=== PATIENT | female | born 1995 | race Caucasian/White ===

== ENCOUNTER 2017-10-21 10:02 | Emergency (ER) | payer OTHER ==
[~2017-10-21] VITALS: Ht 152.4 cm; Wt 66.1 kg
[~2017-10-21 10:02] MED LIST: IBUP-1459 PO
[2017-10-21 10:13] VITALS: TEMP 36.5; Ht 152.4 cm; Wt 66.1 kg
[2017-10-21 11:04] VITALS: O2SAT 99
--- NOTE | 2017-10-21 11:05 | EMERGENCY ROOM VISIT NOTE ---
History Report prepared by Sugey: Jordan Mancini Under the Supervision of: Dr. Tre Parisi D.O. First contact with patient: 10:48 Chief Complaint: CHEST PAIN Stated Complaint: CHEST PAIN, SOB Nursing Triage Summary: pt reports chest pain started last . radiates to left shoulder and down arm. cold sx started thursday History of Present Illness The patient is a 22 year old female who presents to the Emergency Room with complaints of intermittent but worsening left sided chest pain that she has been experiencing since last , 6 days ago. The patient states that her symptoms have been occurring more frequently and more severely as of recently, with the worst episodes being last night. She describes her chest pain as a "tightness" with associated pain and "tingling" in her left shoulder. She also notes significant shortness of breath last night with "hot flashes." Her episodes last night lasted for a couple minutes at a time. She was also lightheaded and dizzy. The patient's father had a myocardial infarction at the age of 26. Source of History: patient Onset: 6 days [employer] Position: chest (left) Quality: other ("tightness") Timing: intermittent, worsening Associated Symptoms: + fevers (Hot flashes), + SOB Review of Systems See HPI for pertinent positives & negatives. A total of 10 systems reviewed and were otherwise negative. Past Medical & Surgical Medical Problems: (1) Facial cellulitis (2) No Known Active Medical Problems Surgical Problems: (1) History of dilatation and curettage Family History FH: myocardial infarction FATHER, Onset:26 Heart disease FATHER Social History Smoking Status: Never Smoker Occupation Status: employed Current/Historical Medications Scheduled Albuterol Hfa (Ventolin Hfa), 2-4 PUFFS INH Q6H Omeprazole (Prilosec), 1 CAP PO DAILY Allergies Coded Allergies: No Known Allergies (Unverified , 10/21/17) Physical Exam Vital Signs Date Time Temp Pulse Resp B/P (MAP) Pulse Ox O2 Delivery O2 Flow Rate FiO2 10/21/17 13:40 74 16 106/65 99 10/21/17 13:19 86 10/21/17 12:55 69 18 101/62 100 Room Air 10/21/17 11:06 82 10/21/17 11:04 82 18 107/71 99 Room Air 1/24/18 11:04 99 Room Air 10/21/17 10:13 36.5 82 18 132/85 99 Room Air Physical Exam GENERAL: Patient is awake, alert, and in no acute distress. Patient is resting comfortably and showing no signs of anxiety EYES: The conjunctivae are clear. The pupils are round and reactive. EARS, NOSE, MOUTH AND THROAT: The nose is without any evidence of any deformity. Mucous membranes are moist tongue is midline NECK: The neck is nontender and supple. RESPIRATORY: Normal respiratory effort is noted there is no evidence of wheezing rhonchi or rales CARDIOVASCULAR: Regular rate and rhythm noted there no murmurs rubs or gallops normal S1 normal S2 GASTROINTESTINAL: The abdomen is soft and nondistended. Bowel sounds are present in all quadrants. There was mild upper abdominal TTP. MUSCULOSKELETAL/EXTREMITIES: There is no evidence of gross deformity full range of motion is noted in the hips and shoulders SKIN: There is no obvious evidence of any rash. There are no petechiae, pallor or cyanosis noted. NEUROLOGIC: Patient is awake alert and oriented x3 Medical Decision & Procedures ER Provider Diagnostic Interpretation: Radiology results as stated below per my review and radiologist interpretation: CHEST ONE VIEW PORTABLE HISTORY: 22 years-old Female EVALUATE RESPIRATORY DISTRESS.DYSPNEA acute respiratory distress with shortness of breath COMPARISON: None available TECHNIQUE: Portable AP view of the chest FINDINGS: Cardiomediastinal and hilar silhouettes are within normal limits. No pneumothorax, pleural effusion, focal airspace consolidation or overt pulmonary edema. The bones of the chest appear grossly intact. Imaged upper abdomen is unremarkable. IMPRESSION: No acute process. The above report was generated using voice recognition software. It may contain grammatical, syntax or spelling errors. Electronically signed by: Sanjiv Hansen M.D. 10/21/2017 12:06 PM Dictated Date/Time: 10/21/2017 12:05 PM Laboratory Results 10/21/17 11:15 Red Blood Count 4.36, Mean Corpuscular Volume 86.9, Mean Corpuscular Hemoglobin 30.3, Mean Corpuscular Hemoglobin Concent 34.8, Mean Platelet Volume 9.6, Neutrophils (%) (Auto) 69.5, Lymphocytes (%) (Auto) 18.7, Monocytes (%) (Auto) 8.7, Eosinophils (%) (Auto) 2.4, Basophils (%) (Auto) 0.5, Neutrophils # (Auto) 5.58, Lymphocytes # (Auto) 1.50, Monocytes # (Auto) 0.70, Eosinophils # (Auto) 0.19, Basophils # (Auto) 0.04 10/21/17 11:15 Test 10/21/17 11:10 10/21/17 11:15 10/21/17 11:16 Urine Color YELLOW Urine Appearance CLEAR (CLEAR) Urine pH 8.0 (4.5-7.5) Urine Specific [place] 1.013 (1.000-1.030) Urine Protein NEG (NEG) Urine Glucose (UA) NEG (NEG) Urine Ketones NEG (NEG) Urine Occult Blood NEG (NEG) Urine Nitrite NEG (NEG) Urine Bilirubin NEG (NEG) Urine Urobilinogen NEG (NEG) Urine Leukocyte Esterase NEG (NEG) White Blood Count 8.03 K/uL (4.8-10.8) Red Blood Count 4.36 M/uL (4.2-5.4) Hemoglobin 13.2 g/dL (12.0-16.0) Hematocrit 37.9 % (37-47) Mean Corpuscular Volume 86.9 fL (80-100) Mean Corpuscular Hemoglobin 30.3 pg (25-34) Mean Corpuscular Hemoglobin Concent 34.8 g/dl (32-36) Platelet Count 174 K/uL (130-400) Mean Platelet Volume 9.6 fL (7.4-10.4) Neutrophils (%) (Auto) 69.5 % Lymphocytes (%) (Auto) 18.7 % Monocytes (%) (Auto) 8.7 % Eosinophils (%) (Auto) 2.4 % Basophils (%) (Auto) 0.5 % Neutrophils # (Auto) 5.58 K/uL (1.4-6.5) Lymphocytes # (Auto) 1.50 K/uL (1.2-3.4) Monocytes # (Auto) 0.70 K/uL (0.11-0.59) Eosinophils # (Auto) 0.19 K/uL (0-0.5) Basophils # (Auto) 0.04 K/uL (0-0.2) RDW Standard Deviation 39.9 fL (36.4-46.3) RDW Coefficient of Variation 12.4 % (11.5-14.5) Immature Granulocyte % (Auto) 0.2 % Immature Granulocyte # (Auto) 0.02 K/uL (0.00-0.02) Prothrombin Time 10.7 SECONDS (9.0-12.0) Prothromb Time International Ratio 1.0 (0.9-1.1) Activated Partial Thromboplast Time 29.4 SECONDS (21.0-31.0) Partial Thromboplastin Ratio 1.1 Anion Gap 7.0 mmol/L (3-11) Est Creatinine Clear Calc Drug Dose 128.0 ml/min Estimated GFR () > 150.0 Estimated GFR (Non- 131.0 BUN/Creatinine Ratio 9.9 (10-20) Calcium Level 9.2 mg/dl (8.5-10.1) Total Bilirubin 0.4 mg/dl (0.2-1) Aspartate Amino Transf (AST/SGOT) 12 U/L (15-37) Alanine Aminotransferase (ALT/SGPT) 14 U/L (12-78) Alkaline Phosphatase 53 U/L (45-117) Total Creatine Kinase 55 U/L (26-192) Creatine Kinase MB 0.5 ng/ml (0.5-3.6) Creatine Kinase MB Ratio 0.9 (0-3.0) Troponin I < 0.015 ng/ml (0-0.045) Total Protein 7.3 gm/dl (6.4-8.2) Albumin 3.8 gm/dl (3.4-5.0) Globulin 3.5 gm/dl (2.5-4.0) Albumin/Globulin Ratio 1.1 (0.9-2) Human Chorionic Gonadotropin, Qual NEG (NEG) Bedside D-Dimer 97 ng/mlFEU (0-450) Laboratory results per my review. ECG Indication: chest pain Rate (beats per minute): 84 Rhythm: normal sinus Findings: Q waves (Inferior), no acute ischemic change, no ectopy Comparison ECG Date: 09/17/2015 Change: no significant change Change: Patient's EKG was interpreted by me. ED Course 1056: The patient was evaluated in room C11. A complete history and physical examination were performed. 1218: I checked on the patient at this time. She is doing well. 1317: Upon reevaluation, the patient is resting comfortably. I discussed the results and treatment plan with her. She verbalized agreement of the treatment plan. The patient was discharged home. Medical Decision Differential diagnosis: Etiologies such as cardiac ischemia, aortic dissection, pulmonary embolism, pneumonia, pneumothorax, musculoskeletal, infections, pericarditis, myocarditis , esophageal rupture, gastrointestinal, as well as others were entertained. Nursing notes reviewed. The patient is a 22-year-old female who presented to emergency department for an evaluation of chest discomfort. The patient describes intermittent left- sided chest pain. The patient has a strong family history of early coronary disease. For this reason she presented to the emergency department for an evaluation. The patient's EKG did not show any acute changes from previous. Her d-dimer is negative. Her cardiac biomarkers were negative despite having ongoing pain since last evening. I discussed the patient's laboratory radiographic studies with her. I discussed the limitations of the emergency department workup for chest pain with her. She was encouraged to follow-up with her primary care physician for further testing including echocardiogram. She was also encouraged to rest and avoid any strenuous activity. I also encouraged her to return to the emergent department immediately symptoms change worsen or the need arises. Impression Primary Impression: Left sided chest pain Scribe Attestation The scribe's documentation has been prepared under my direction and personally reviewed by me in its entirety. I confirm that the note above accurately reflects all work, treatment, procedures, and medical decision making performed by me. Departure Information Dispostion Home / Self-Care Prescriptions Omeprazole (PRILOSEC) 20 Mg Cap 1 CAP PO DAILY for 30 Days, #30 CAP 5 Refills Prov: Tre Parisi, DO 10/21/17 Referrals No Doctor, Assigned (PCP) Patient Instructions My [facility] Additional Instructions Call your family to schedule a follow-up appointment. Res and avoid any strenuous activity. Call your family doctor to discuss the possibility that he may require further studies such as an electrocardiograms. Return to the emergency department immediately if symptoms change worsen or the need arises.
[2017-10-21 11:22] LABS: BASO % 0.5 %; BASO ABS # 0.04 K/uL (0-0.2); EOS % 2.4 %; EOS ABS # 0.19 K/uL (0-0.5); HEMATOCRIT 37.9 % (37-47); HEMOGLOBIN 13.2 g/dL (12.0-16.0); IG# 0.02 K/uL (0.00-0.02); LYMPH % 18.7 %; MEAN CELL VOLUME 86.9 fL (80-100); MEAN CORPUSCULAR HEMOGLOBIN 30.3 pg (25-34); MEAN CORPUSCULAR HGB CONC 34.8 g/dl (32-36); MEAN PLATELET VOLUME 9.6 fL (7.4-10.4); MONO % 8.7 %; NEUT % 69.5 %; NEUT ABS # 5.58 K/uL (1.4-6.5); PLATELET COUNT 174 K/uL (130-400); RED CELL DISTRIBUTION WIDTH CV 12.4 % (11.5-14.5); RED CELL DISTRIBUTION WIDTH SD 39.9 fL (36.4-46.3); WHITE BLOOD COUNT 8.03 K/uL (4.8-10.8)
[2017-10-21] MEDS ORDERED: VNTHFA/IN INH (11:25)
[2017-10-21 11:35] LABS: PTT PATIENT 29.4 SECONDS (21.0-31.0)
[2017-10-21 11:41] LABS: ALBUMIN 3.8 gm/dl (3.4-5.0); ALT/SGPT 14 U/L (12-78); AST/SGOT 12 U/L (15-37); BLOOD UREA NITROGEN 6 mg/dl (7-18); CALCIUM 9.2 mg/dl (8.5-10.1); CARBON DIOXIDE 25 mmol/L (21-32); CREATININE 0.59 mg/dl (0.60-1.20); GLUCOSE 85 mg/dl (70-99); POTASSIUM 3.4 mmol/L (3.5-5.1); SODIUM 137 mmol/L (136-145)
[2017-10-21 11:45] LABS: ALKALINE PHOSPHATASE 53 U/L (45-117); CKMB 0.5 ng/ml (0.5-3.6); TOTAL PROTEIN 7.3 gm/dl (6.4-8.2)
--- NOTE | 2017-10-21 12:08 | DIAGNOSTIC IMAGING REPORT ---
CHEST ONE VIEW PORTABLE HISTORY: 22 years-old Female EVALUATE RESPIRATORY DISTRESS.DYSPNEA acute respiratory distress with shortness of breath COMPARISON: None available TECHNIQUE: Portable AP view of the chest FINDINGS: Cardiomediastinal and hilar silhouettes are within normal limits. No pneumothorax, pleural effusion, focal airspace consolidation or overt pulmonary edema. The bones of the chest appear grossly intact. Imaged upper abdomen is unremarkable. IMPRESSION: No acute process. The above report was generated using voice recognition software. It may contain grammatical, syntax or spelling errors. Electronically signed by: Sanjiv Hansen M.D. 10/21/2017 12:06 PM Dictated Date/Time: 10/21/2017 12:05 PM
[2017-10-21] MEDS ORDERED: OMEP20CA9 PO (13:19)
[2017-10-21 13:40] VITALS: BP 106/65; PULSE 74; O2SAT 99
== END 2017-10-21 13:41 | disposition home or self-care (01) ==
LOC: C.EDB 10:06 → C.EDC 13:41
DX: Z82.49 Family history of ischemic heart disease and other diseases of the circulatory system (principal)

== ENCOUNTER 2020-04-06 09:52 | Inpatient (IN) ==
--- NOTE | 2020-04-06 14:41 | Obstetrical Progress Note ---
Date of Service April 06, 2020 Assessment & Plan Admission and Anticipated Discharge Date Admission Date: April 06, 2020 Subjective Met pt and spouse Reviewed PNC induction for post dates Bedside sono: Vt FHR: CAT1 Ctx. minimal VE; ft/post/25% Bess bulb inserted and insufflated with 30 cc Pt tolerated procedure well Results & Data ([facility]) Vital Signs (Past 12 Hours) Vital Signs Temp Pulse Resp BP 04/06/20 13:26 36.7 C 20 04/06/20 13:15 89 131/61
[2020-04-06] MEDS ORDERED: OXYTOCIN 30 UNITS/500 ML BAG IV PRN (15:21)
[2020-04-06] MEDS ORDERED: PENICILLIN G POTASSIUM 6 MU in DEXTROSE 5% 250 ML IV STA (15:21)
[2020-04-06] MEDS: LACTATED RINGER'S 1,000 ML IV PRN ×2 (15:39→22:16)
[2020-04-06 16:02] LABS: Hematocrit (blood only) 35.3 % (37-47); Hemoglobin 11.4 g/dL (12.0-16.0); Mean Corpuscular Volume 83.5 fL (80-100); Mean Platelet Volume 10.4 fL (7.4-10.4); Platelet Count 240 K/uL (130-400); RDW Standard Deviation 45.6 fL (36.4-46.3); Red Blood Count 4.23 M/uL (4.2-5.4); White Blood Count 10.73 K/uL (4.8-10.8)
[2020-04-06 16:05] LABS: Mean Corpuscular Hgb Conc 32.3 g/dL (32-36)
--- NOTE | 2020-04-06 21:15 | Obstetrical Progress Note ---
Date of Service April 06, 2020 Assessment & Plan Admission and Anticipated Discharge Date Admission Date: April 06, 2020 Subjective Pt doing well FHR; CAT1 Ctx 1-3mins pit; 10MU VE; 3/50/-3 AROM with amnio.hook- clear fluid Results & Data ([facility]) Vital Signs (Past 12 Hours) Vital Signs Temp Pulse Resp BP 04/06/20 20:01 75 18 122/71 04/06/20 19:12 36.4 C L 70 18 124/78 04/06/20 18:25 61 111/67 04/06/20 17:39 71 104/57 L 04/06/20 16:34 70 114/74 04/06/20 15:43 88 109/71 04/06/20 14:59 37.0 C 77 20 116/67 04/06/20 13:26 36.7 C 20 04/06/20 13:15 89 131/61
[2020-04-06] MEDS ORDERED: BUPIVACAINE 0.25% 30 ML VIAL ONE (22:04)
[2020-04-06] MEDS ORDERED: ePHEDrine sulfate 50 MG/ML AMP ONE (22:04)
[2020-04-06] MEDS ORDERED: fentaNYL 2MCG/ML ROPIV 1.25MG/ML 100 ML BAG EPI ONE (22:05)
[2020-04-06] MEDS ORDERED: fentaNYL citrate 100 MCG/2 ML VIAL ONE (22:05)
--- NOTE | 2020-04-06 22:22 | Anesthesiology Consultation ---
Date of Service April 06, 2020 Assessment & Plan (1) Encounter for pre-operative examination: Chart Review Chart Review: Patient NOT seen in Pre Admission Testing and Acceptable Risk for Labor Epidural Consults Requested none ASA ASA3 Proposed Anesthesia Anesthesia Type: Labor Epidural Risk / Benefits Reviewed With: PT / POA / Parent / Guardian, Accepts Plan and Informed Consent Obtained History Height/Weight Height: 5 ft 1 in Weight: 92.533 kg Allergies Allergy/AdvReac Type Severity Reaction Status Date / Time No Known Allergies Allergy Verified 04/06/20 13:42 Medications Home Medications Medication Instructions Recorded Confirmed Last Taken vit no.[id number] 1 tab PO DAILY 03/05/20 04/06/20 04/06/20 05:00 [ Vitamin] albuterol sulfate 2 puff INHALATION QID PRN 03/20/20 04/06/20 Unknown Active Medications Generic Name Dose Route Start Last Admin Trade Name Freq PRN Reason Stop Dose Admin Lactated Ringer's 1,000 mls @ 125 mls/hr 04/06/20 15:21 04/06/20 22:16 Lr IV 04/08/20 15:20 999 mls/hr .Q8H PRN Administration L&D Protocol Protocol Oxytocin 30 units in 500 mls @ 10 mls/hr 04/06/20 15:21 04/06/20 22:00 Pitocin IV 04/08/20 15:20 0.6 units/hr .Q24H PRN 10 mls/hr Labor Induction/Augmentation Titration Protocol 0.6 UNITS/HR NPO Date Last Intake of Fluids: 04/06/20 Time Last Intake of Fluids: 22:19 Date Last Intake of Solids: 04/06/20 Time Last Intake of Solids: 11:00 Past Medical History Medical History Asthma inhaler as needed Medullary sponge kidney Diagnosed a few years ago; saw nephrology 12/2018; monitoring yearly PCOS (polycystic ovarian syndrome) SAB (spontaneous ) w/ D&C 2015 Exercise / Class Metabolic Activity II 4-5 Yardwork/Stairs/Walk up hill Past Family History Family History Father Heart disease Grandfather (Paternal) Diabetes Grandfather (Maternal) Cancer Past Surgical History Surgical History History of dilatation and curettage Past Anesthesia History No Hx of Anesthesia Complications History of PONV No Hx of PONV Social History Smoking Status: Never smoker Hx Alcohol Use: No Hx Substance Use: No substance use type: does not use Review of Systems Patient denies history of abnormal bleeding or bleeding disorder. Patient denies active use of anticoagulants other than low dose aspirin. Patient denies numbness, tingling or weakness in lower extremities. Negative for chest pain or shortness of breath. Physical Exam Vital Signs Last Vital Signs Temp 36.4 C L 04/06/20 21:14 Pulse 77 04/06/20 21:14 Resp 18 04/06/20 21:14 BP 135/83 04/06/20 21:14 Constitutional not obese ENMT Mouth: no TMJ abnormality and oral opening not small Thyromental Distance: < 3.5 Finger Breadths Mallampati Class: III Neck normal visual inspection; neck extension not limited Respiratory normal respiratory effort Auscultation: lungs clear to auscultation bilaterally Cardiovascular Rate/Rhythm: regular rate and regular rhythm Heart Sounds: no murmur Neurologic moves all extremities Motor/Sensory: no sensory deficit Psychiatric Orientation: alert and oriented x 3 Testing Laboratory Results 04/06/20 15:34
[2020-04-06] MEDS ORDERED: ePHEDrine sulfate 50 MG/ML AMP IV PRN (22:53)
[2020-04-06] MEDS ORDERED: NALOXONE HCL 1 MG in SODIUM CHLORIDE 0.9% 1000ML 1,000 ML IV PRN (22:53)
[2020-04-06] MEDS ORDERED: DiphenhydrAMINE HCL 50 MG/ML VIAL IV PRN (22:53)
[2020-04-06] MEDS ORDERED: ONDANSETRON INJ 2 MG/ML 2 ML VIAL IV PRN (22:53)
[2020-04-06] MEDS ORDERED: NALOXONE HCL 0.4 MG/1 ML VIAL/CARP IV PRN (22:53)
[2020-04-07] MEDS: LACTATED RINGER'S 1,000 ML IV PRN ×3 (00:14→16:37)
[2020-04-07] MEDS: PENICILLIN G POTASSIUM 3 MU in DEXTROSE 5% 100 ML IV PRN ×5 (01:52→20:00)
[2020-04-07] MEDS: fentaNYL 2MCG/ML ROPIV 1.25MG/ML 100 ML BAG EPI PRN ×3 (07:56→17:27)
[2020-04-07] MEDS ORDERED: PROMETHAZINE HCL 12.5 MG in SODIUM CHLORIDE 0.9% 50 ML IV PRN (09:27)
[2020-04-07] MEDS ORDERED: BUPIVACAINE 0.25% 30 ML VIAL ONE ×2 (11:35→16:52)
[2020-04-07] MEDS ORDERED: fentaNYL citrate 100 MCG/2 ML VIAL ONE ×2 (11:35→16:52)
--- NOTE | 2020-04-07 12:06 | Communication Note ---
Date of Service: April 07, 2020 At 1201pm ,pt. epidural catheter was bolused with 12 ml 0.17% bupivacaine + 100 mcgs fentanyl; negative aspiration w/ incremental injections;vital signs stable. pt c/o pain level 8/10
--- NOTE | 2020-04-07 17:06 | Communication Note ---
Date of Service: April 07, 2020 At 1702, pt epidural was bolused w/ 12 ml 0.17% bupivacaine + 100 mcgs fentanyl;neg. asp. and incremental injection was performed.Vital signs were stable.
[2020-04-07] MEDS: OXYTOCIN 30 UNITS/500 ML BAG IV PRN ×2 (20:35→21:10)
--- NOTE | 2020-04-07 20:48 | Delivery Summary ---
Vaginal Delivery Summary Date of Service April 07, 2020 Vaginal Delivery Summary Delivery Note live male SEBAS with nuchal cord x1 reduced at delivery over intact perineum with Apgars 7/9 weight pending. Cord blood obtained followed by spontaneous delivery of intact placenta. No tears. EBL 200 ml. Final sponge and instrument count are correct. Mom and baby stable.
[2020-04-07] MEDS ORDERED: IBUPROFEN 600 MG TAB PO ONE (21:58)
[2020-04-07] MEDS ORDERED: DIPHTHERIA/TETANUS/PERTUSSIS 0.5 ML SYR/VIAL IM ONE (22:05)
[2020-04-07] MEDS ORDERED: BENZOCAINE 20% AER SPR 82.5 GM CAN EXT PRN (22:05)
[2020-04-07] MEDS ORDERED: ALBUTEROL HFA 8 GM INHALER INH PRN (22:05)
[2020-04-07] MEDS ORDERED: SUPERCREAM 0.870% 15 GM JAR EXT PRN (22:05)
[2020-04-07] MEDS ORDERED: bisacodyL 10 MG SUPP PR PRN (22:05)
[2020-04-07] MEDS ORDERED: HYDROCORTISONE ACETATE 25 MG SUPP PR PRN (22:05)
[2020-04-07] MEDS ORDERED: OXYTOCIN 30 UNITS/500 ML BAG IV PRN (22:05)
--- NOTE | 2020-04-07 23:12 | Anesthesia Procedure Note ---
Date of Service April 07, 2020 Anesthesia Post Epidural Note Vital Signs Vital Signs: Temp Pulse Resp BP Pulse Ox 36.8 C 94 H 18 107/63 98 04/07/20 21:45 04/07/20 23:00 04/07/20 22:55 04/07/20 23:00 04/07/20 20:36 Notes Mental Status: alert / awake / arousable and participated in evaluation Nausea / Vomiting: adequately controlled Pain: adequately controlled Airway Patency, RR, SpO2: stable & adequate BP & HR: stable & adequate Hydration State: stable & adequate Neuraxial Anesthesia: was administered and sensory block is resolving Anesthetic Complications: no major complications apparent and Pt Satisfied with anesthetic care Epidural: Removed without complications and With tip intact Notes: Epidural site clean, dry and intact. No signs of edema, erythema or bruising at insertion site. Pt instructed to request anesthesia if she has residual lower extremity numbness or if she develops lower extremity pain or weakness, back pain or headache.
[2020-04-08] MEDS: IBUPROFEN 600 MG TAB PO PRN ×6 (02:03→23:16)
[2020-04-08] MEDS: ACETAMINOPHEN 325 MG TAB PO PRN ×2 (03:38→19:40)
[2020-04-08 05:47] LABS: Hematocrit (blood only) 28.6 % (37-47); Hemoglobin 9.6 g/dL (12.0-16.0); Mean Corpuscular Hemoglobin 27.1 pg (25-34); Mean Corpuscular Hgb Conc 33.6 g/dL (32-36); Mean Corpuscular Volume 80.8 fL (80-100); Mean Platelet Volume 10.3 fL (7.4-10.4); Platelet Count 229 K/uL (130-400); RDW Coefficient of Variation 14.7 % (11.5-14.5); RDW Standard Deviation 43.5 fL (36.4-46.3); Red Blood Count 3.54 M/uL (4.2-5.4); White Blood Count 22.86 K/uL (4.8-10.8)
[2020-04-08] MEDS ORDERED: PRENATAL VITAMIN 1 TAB PO SCH (08:00)
[2020-04-08] MEDS: PRENATAL VITAMIN 1 TAB PO SCH (08:44)
[2020-04-08] MEDS: DOCUSATE SODIUM 100 MG CAP PO SCH ×2 (08:44→15:58)
--- NOTE | 2020-04-08 10:11 | Obstetrical Progress Note ---
Date of Service April 08, 2020 Assessment & Plan Admission and Anticipated Discharge Date Admission Date: April 06, 2020 Subjective PPD#1 stable doing well tolerating diet passing gas Physical Exam Constitutional: WD/WN, vitals as above comfortable abdomen soft and non- tender fundus firm no edema neg Joseph's tent d/c in AM Results & Data ([facility]) Vital Signs (Past 12 Hours) Vital Signs Temp Pulse Pulse Resp BP BP Pulse Ox 04/08/20 07:30 36.6 C 76 20 108/69 04/08/20 04:00 36.8 C 74 20 110/68 99 04/08/20 00:00 36.7 C 78 20 113/78 98 04/07/20 23:00 94 H 107/63 04/07/20 22:55 18 04/07/20 22:45 106 H 106/59 L 04/07/20 22:30 100 H 104/58 L 04/07/20 22:15 95 H 18 109/60 Laboratory Results Laboratory Results - last 48 hr 04/06/20 04/08/20 15:34 05:21 WBC 10.73 22.86 H RBC 4.23 3.54 L Hgb 11.4 L 9.6 L Hct 35.3 L 28.6 L MCV 83.5 80.8 MCH 27.0 27.1 MCHC 32.3 33.6 RDW Std Deviation 45.6 43.5 RDW Coeff of Nan 15.0 H 14.7 H Plt Count 240 229 MPV 10.4 10.3
[2020-04-08] MEDS ORDERED: bisacodyL 5 MG TABEC PO SCH (20:00)
[2020-04-09] MEDS: DOCUSATE SODIUM 100 MG CAP PO SCH ×2 (04:02→07:52)
[2020-04-09 05:46] LABS: Hematocrit (blood only) 26.3 % (37-47); Hemoglobin 8.6 g/dL (12.0-16.0)
[2020-04-09] MEDS: PRENATAL VITAMIN 1 TAB PO SCH (07:52)
[2020-04-09] MEDS: IBUPROFEN 600 MG TAB PO PRN (07:52)
--- NOTE | 2020-04-09 08:37 | Obstetrical Progress Note ---
Date of Service April 09, 2020 Assessment & Plan (1) Normal course: PPD #1 pt doing well d/c home with instructions Subjective Ambulation: ambulating normally Voiding: no voiding problems Passing Gas:: Yes Diet Tolerance:: regular diet Lochia:: Small Feeding Type:: breast feeding Review of Systems All systems reviewed & are unremarkable except as noted in HPI & below Physical Exam Constitutional WD/WN, vitals as above well developed and well nourished Eyes PERRL, conjunctivae normal, anicteric sclerae Neck trachea midline, no thyromegaly Respiratory normal respiratory effort, lungs clear to auscultation Auscultation: no crackles, no rales and no wheezes Cardiovascular RRR, no murmur, no edema Gastrointestinal (Abdomen) normal bowel sounds, soft, nontender, no hepatosplenomegaly Uterus is below umbilicus Musculoskeletal no cyanosis or clubbing, extremities motor strength 5/5 Skin no rashes, warm and dry Neurologic patellar DTR's 2+ bilat, sensation intact Psychiatric A+Ox3, euthymic affect Genitourinary normal external appearance Results & Data Vital Signs (Past 12 Hours) Vital Signs Temp Pulse Resp BP Pulse Ox 04/08/20 23:05 36.5 C 75 18 102/64 98
== END 2020-04-09 13:10 | disposition home or self-care (01) | DRG 807 ==
LOC: 4S1 13:07 → 4S2 04-07 23:30

== ENCOUNTER 2023-03-31 23:12 | Inpatient (IN) ==
[2023-03-31] MEDS ORDERED: OXYTOCIN 30 UNITS/500 ML BAG IV PRN (23:38)
[2023-03-31] MEDS ORDERED: LIDOCAINE 1% LOCAL 20 ML VIAL INFIL PRN (23:38)
[2023-03-31] MEDS: LACTATED RINGER'S 1,000 ML IV PRN (23:50)
[2023-03-31] MEDS ORDERED: ePHEDrine sulfate 50 MG/ML AMP ONE (23:59)
[2023-03-31] MEDS ORDERED: fentaNYL citrate PF 100 MCG/2 ML VIAL ONE (23:59)
[2023-04-01] MEDS ORDERED: fentaNYL 2MCG/ML ROPIVACAINE 1.25MG/ML 100 ML BAG EPI ONE
[2023-04-01] MEDS ORDERED: BUPIVACAINE 0.25% PF 30 ML VIAL ONE
[2023-04-01] MEDS ORDERED: SODIUM CHLORIDE 0.9% PF INJ 10 ML VIAL ONE
[2023-04-01] MEDS ORDERED: LIDOCAINE 2%/EPINEPHRINE 1:200,000 20 ML PF ONE
[2023-04-01 00:39] LABS: Hematocrit (blood only) 35.1 % (37.0-47.0); Mean Corpuscular Hemoglobin 29.9 pg (25.0-34.0); Mean Corpuscular Hgb Conc 34.2 g/dL (32.0-36.0); Mean Corpuscular Volume 87.3 fL (80.0-100.0); Mean Platelet Volume 9.9 fL (9.4-12.4); Platelet Count 299 K/uL (130-400); RDW Coefficient of Variation 13.9 % (11.5-14.5); RDW Standard Deviation 45.1 fL (36.4-46.3); Red Blood Count 4.02 M/uL (4.20-5.40); White Blood Count 18.21 K/ul (4.8-10.8)
[2023-04-01] MEDS: LACTATED RINGER'S 1,000 ML IV PRN ×2 (00:49→09:03)
[2023-04-01] MEDS ORDERED: BUPIVACAINE 0.25% PF 30 ML VIAL EPI PRN (02:31)
[2023-04-01] MEDS ORDERED: BUPIVACAINE 0.25% PF 30 ML VIAL EPI STA (02:31)
[2023-04-01] MEDS ORDERED: LIDOCAINE 2% MPF LOCAL 5 ML VIAL EPI PRN (02:31)
[2023-04-01] MEDS ORDERED: NALOXONE HCL 1 MG in SODIUM CHLORIDE 0.9% 1000ML 1,000 ML IV PRN (02:31)
[2023-04-01] MEDS ORDERED: LIDOCAINE 2%/EPINEPHRINE 1:200,000 20 ML PF EPI STA (02:31)
[2023-04-01] MEDS ORDERED: SODIUM CHLORIDE 0.9% PF INJ 10 ML VIAL EPI STA (02:31)
[2023-04-01] MEDS ORDERED: diphenhydrAMINE 50 MG/ML VIAL IV PRN (02:31)
[2023-04-01] MEDS ORDERED: NALBUPHINE HCL INJ 10 MG/ML AMP IV PRN (02:31)
[2023-04-01] MEDS ORDERED: ePHEDrine sulfate 50 MG/ML AMP IV PRN (02:31)
[2023-04-01] MEDS ORDERED: ROPIVACAINE 0.5% PF 5 MG/ML 20 ML VIAL EPI PRN (02:31)
[2023-04-01] MEDS ORDERED: ONDANSETRON INJ 2 MG/ML 2 ML VIAL IV PRN (02:31)
[2023-04-01] MEDS ORDERED: SODIUM CHLORIDE 0.9% PF INJ 10 ML VIAL EPI PRN (02:31)
[2023-04-01] MEDS ORDERED: fentaNYL citrate PF 100 MCG/2 ML VIAL EPI PRN (02:31)
[2023-04-01] MEDS ORDERED: fentaNYL 2MCG/ML ROPIVACAINE 1.25MG/ML 100 ML BAG EPI PRN (02:31)
[2023-04-01] MEDS ORDERED: NALOXONE HCL 0.4 MG/1 ML VIAL/CARP IV PRN (02:31)
[2023-04-01] MEDS ORDERED: fentaNYL citrate PF 100 MCG/2 ML VIAL EPI STA (02:31)
--- NOTE | 2023-04-01 02:31 | Anesthesiology Consultation ---
Date of Service April 01, 2023 Assessment & Plan ASA ASA2 Proposed Anesthesia Anesthesia Type: Labor Epidural Risk / Benefits Reviewed With: PT / POA / Parent / Guardian, Accepts Plan and Informed Consent Obtained Additional Comments: late entry 2/2 need for pain control of patient History Height/Weight Height: 5 ft 1 in Weight: 83.461 kg Allergies Allergy/AdvReac Type Severity Reaction Status Date / Time No Known Allergies Allergy Verified 03/31/23 19:19 Medications Home Medications Medication Instructions Recorded Confirmed Last Taken vit no.133-ferrous 1 tab PO DAILY 10/31/22 03/31/23 03/30/23 fumarate 28 mg-folic acid 800 mcg tablet () Active Medications Generic Name Dose Route Start Last Admin Trade Name Freq PRN Reason Stop Dose Admin Lactated Ringer's 1,000 mls @ 125 mls/hr 03/31/23 23:38 04/01/23 00:49 Lr IV 04/02/23 23:37 125 mls/hr .Q8H PRN Administration L&D Protocol Protocol Past Medical History Medical History Anemia Iron infusions x 3 Asthma inhaler as needed Medullary sponge kidney Diagnosed a few years ago; saw nephrology 12/2018; monitoring yearly PCOS (polycystic ovarian syndrome) SAB (spontaneous ) w/ D&C 2015 Exercise / Class Metabolic Activity II 4-5 Yardwork/Stairs/Walk up hill Past Family History Family History Father Heart disease Grandfather (Paternal) Diabetes Grandfather (Maternal) Cancer Past Surgical History Surgical History History of dilatation and curettage Past Anesthesia History No Hx of Anesthesia Complications and No Family Hx of Anesthesia Complications History of PONV No Hx of PONV and No Hx of Motion Sickness Social History Smoking Status: Never smoker Hx Alcohol Use: No Hx Substance Use: No substance use type: does not use Review of Systems denies fever/cough/ colds/ chest pain/ SOB/ SIVA denies SIVA Physical Exam Vital Signs Last Vital Signs Temp 36.5 C 03/31/23 23:25 Pulse 103 H 04/01/23 02:26 Resp 18 03/31/23 23:25 BP 105/51 L 04/01/23 02:26 Pulse Ox 96 04/01/23 02:25 ENMT Mouth: no TMJ abnormality and no dentition abnormality Thyromental Distance: > or= 3.5 Finger Breadths Mallampati Class: II Neck neck extension not limited Respiratory normal respiratory effort; no respiratory distress Auscultation: lungs clear to auscultation bilaterally Cardiovascular Rate/Rhythm: regular rate and regular rhythm Neurologic moves all extremities Psychiatric Orientation: alert and oriented x 3 Testing Laboratory Results 04/01/23 00:13
--- NOTE | 2023-04-01 06:37 | Obstetrical Progress Note ---
Date of Service April 01, 2023 Assessment & Plan (1) : Plan: Pt admitted for labor seen this AM FHR CAT1 Ctx 1-2mins Exam by Nurse. 7cm anticipate VD Admission and Anticipated Discharge Date Admission Date: March 31, 2023 Results & Data Vital Signs (Past 12 Hours) Vital Signs Temp Pulse Resp BP Pulse Ox 03/31/23 23:25 36.5 C 78 18 114/58 L 04/01/23 06:30 86 97 04/01/23 06:25 91 H 99 04/01/23 06:24 80 99/56 L 04/01/23 06:23 89 90 04/01/23 06:20 84 98 04/01/23 06:15 79 98 04/01/23 06:10 79 101/59 L 98 04/01/23 06:05 78 98 04/01/23 06:00 85 98 04/01/23 05:56 86 91/52 L 04/01/23 05:49 18 04/01/23 05:49 18 04/01/23 05:55 91 H 98 04/01/23 05:50 96 H 97 04/01/23 05:45 84 98 04/01/23 05:40 98 04/01/23 05:40 88 04/01/23 05:40 84 116/65 04/01/23 05:38 106 H 92 04/01/23 05:35 80 97 04/01/23 05:30 80 99 04/01/23 05:25 97 H 93/52 L 98 04/01/23 05:20 75 97 04/01/23 05:15 83 98 04/01/23 05:10 77 97 04/01/23 05:09 75 89/51 L 04/01/23 05:05 83 97 04/01/23 05:00 77 98 04/01/23 04:55 84 97 04/01/23 04:54 77 94/52 L 04/01/23 04:50 90 98 04/01/23 04:45 95 H 99 04/01/23 04:44 69 94 04/01/23 04:40 97 04/01/23 04:40 68 04/01/23 04:40 67 104/51 L 04/01/23 04:38 74 94 04/01/23 04:35 71 96 04/01/23 04:30 69 96 04/01/23 04:28 69 94 04/01/23 04:25 97 04/01/23 04:25 69 04/01/23 04:25 65 105/57 L 04/01/23 04:20 70 98 04/01/23 04:19 66 94 04/01/23 04:15 79 98 04/01/23 04:11 68 114/52 L 04/01/23 04:10 68 98 04/01/23 04:05 77 97 04/01/23 04:03 16 04/01/23 04:03 16 04/01/23 04:02 112 H 94 04/01/23 04:00 80 96 04/01/23 03:56 84 94 04/01/23 03:57 88 85/51 L 04/01/23 03:55 83 95 04/01/23 03:50 95 04/01/23 03:50 84 04/01/23 03:50 81 94 04/01/23 03:45 84 95 04/01/23 03:44 80 94 04/01/23 03:40 87 96 04/01/23 03:39 80 83/50 L 04/01/23 03:38 82 94 04/01/23 03:35 88 95 04/01/23 03:33 76 94 04/01/23 03:30 88 95 04/01/23 03:25 96 04/01/23 03:25 94 H 04/01/23 03:24 88 94 04/01/23 03:25 94 H 87/51 L 04/01/23 03:20 92 H 95 04/01/23 03:19 92 H 94 04/01/23 03:15 80 95 04/01/23 03:11 86 89/51 L 04/01/23 03:10 83 93 04/01/23 03:05 94 H 96 04/01/23 03:00 95 H 98 04/01/23 02:56 81 92/52 L 04/01/23 02:55 95 04/01/23 02:55 95 H 04/01/23 02:55 86 94 04/01/23 02:50 100 H 97 04/01/23 02:45 92 H 98 04/01/23 02:43 86 94 04/01/23 02:40 108 H 98 04/01/23 02:39 100 H 100/45 L 04/01/23 02:35 100 H 98 04/01/23 02:32 101 H 103/51 L 04/01/23 02:20 18 04/01/23 02:20 18 04/01/23 02:30 36.8 C 100 H 16 96 04/01/23 02:25 103 H 16 96 04/01/23 02:26 103 H 105/51 L 04/01/23 02:24 97 H 119/56 L 04/01/23 02:22 100 H 125/59 L 04/01/23 02:20 97 04/01/23 02:20 104 H 04/01/23 02:20 107 H 88/52 L 04/01/23 02:18 102 H 100/54 L 04/01/23 02:16 94 H 18 107/55 L 04/01/23 02:15 108 H 98 04/01/23 02:10 95 H 93 04/01/23 02:11 96 H 88 L 04/01/23 02:05 111 H 99 04/01/23 01:55 76 97 04/01/23 01:50 121 H 100 04/01/23 01:45 100 04/01/23 01:45 121 H 04/01/23 01:45 105 H 91 04/01/23 01:40 90 98 04/01/23 01:35 85 97 04/01/23 01:33 96 H 94 04/01/23 01:30 84 98 04/01/23 01:25 92 H 97 04/01/23 01:20 97 H 99 04/01/23 01:15 93 H 98 04/01/23 01:02 70 97 04/01/23 00:57 73 97 04/01/23 00:52 82 99 04/01/23 00:47 80 98 04/01/23 00:42 75 98 04/01/23 00:37 105 H 100 04/01/23 00:32 74 99 04/01/23 00:33 72 101/57 L 03/31/23 23:19 78 114/58 L
--- NOTE | 2023-04-01 11:00 | Labor Progress Brief Note ---
Date of Service April 01, 2023 Assessment & Plan Admission and Anticipated Discharge Date Admission Date: March 31, 2023 Physical Exam Genitourinary: Manual OB Exam: + cervical dilation 9 cm and + amniotic fluid clear OB Exam Monitor Tracing: + external FHT monitor used, + external uterine monitor used, + category I and + normal FHT variability Results & Data Vital Signs (Past 12 Hours) Vital Signs Temp Pulse Resp BP Pulse Ox 03/31/23 23:25 36.5 C 78 18 114/58 L 04/01/23 10:55 98 04/01/23 10:55 97 H 04/01/23 10:55 83 102/55 L 04/01/23 10:50 92 H 99 04/01/23 10:45 83 97 04/01/23 10:40 97 04/01/23 10:40 77 04/01/23 10:40 81 88/52 L 04/01/23 10:35 79 99 04/01/23 10:34 81 93 04/01/23 10:30 80 96 04/01/23 10:27 86 94 04/01/23 10:25 75 85/50 L 96 04/01/23 10:20 81 96 04/01/23 10:15 77 96 04/01/23 10:14 86 94 04/01/23 10:10 78 96 04/01/23 10:09 78 87/52 L 04/01/23 10:05 76 96 04/01/23 10:00 87 98 04/01/23 09:56 81 99/55 L 04/01/23 09:55 88 97 04/01/23 09:50 83 98 04/01/23 09:49 81 94 04/01/23 09:45 86 94 04/01/23 09:42 80 93 04/01/23 09:41 75 99/55 L 04/01/23 09:40 86 89/53 L 98 04/01/23 09:35 81 96 04/01/23 09:30 84 98 04/01/23 09:27 91 H 94 04/01/23 09:25 92 H 98 04/01/23 09:24 88 122/68 04/01/23 09:20 95 04/01/23 09:20 93 H 04/01/23 09:20 98 H 92 04/01/23 09:15 90 97 04/01/23 09:11 88 94 04/01/23 09:10 92 H 96 04/01/23 09:09 89 108/61 04/01/23 09:05 85 94 04/01/23 09:04 83 93 04/01/23 09:00 91 H 96 04/01/23 08:58 87 94 04/01/23 08:55 89 95 04/01/23 08:54 86 109/61 04/01/23 08:52 84 94 04/01/23 08:50 82 95 04/01/23 08:46 85 93 04/01/23 08:45 84 95 04/01/23 08:41 85 94 04/01/23 08:40 87 95 04/01/23 08:39 92 H 112/62 04/01/23 08:36 81 94 04/01/23 08:35 83 95 04/01/23 08:32 93 H 114/59 L 04/01/23 08:30 88 97 04/01/23 08:25 93 H 97 04/01/23 08:20 78 96 04/01/23 08:15 75 96 04/01/23 08:12 87 93 04/01/23 08:10 87 97 04/01/23 08:05 86 97 04/01/23 08:00 80 95 04/01/23 07:55 75 97 04/01/23 07:54 85 113/69 04/01/23 07:50 97 H 97 04/01/23 07:48 84 93 04/01/23 07:45 101 H 98 04/01/23 07:41 91 H 121/66 04/01/23 07:40 87 97 04/01/23 07:35 90 97 04/01/23 07:30 97 H 98 04/01/23 07:25 87 97 04/01/23 07:26 99 H 126/58 L 04/01/23 07:20 91 H 97 04/01/23 07:15 105 H 97 04/01/23 07:11 36.7 C 84 16 115/59 L 04/01/23 07:10 86 97 04/01/23 07:05 81 97 04/01/23 07:00 86 97 04/01/23 06:55 89 99 04/01/23 06:54 80 101/57 L 04/01/23 06:50 81 97 04/01/23 06:45 85 98 04/01/23 06:40 83 98 04/01/23 06:41 81 102/57 L 04/01/23 06:35 90 98 04/01/23 06:30 86 97 04/01/23 06:25 91 H 99 04/01/23 06:24 80 99/56 L 04/01/23 06:23 89 90 04/01/23 06:20 84 98 04/01/23 06:15 79 98 04/01/23 06:10 79 101/59 L 98 04/01/23 06:05 78 98 04/01/23 06:00 85 98 04/01/23 05:56 86 91/52 L 04/01/23 05:49 18 04/01/23 05:49 18 04/01/23 05:55 91 H 98 04/01/23 05:50 96 H 97 04/01/23 05:45 84 98 04/01/23 05:40 98 04/01/23 05:40 88 04/01/23 05:40 84 116/65 04/01/23 05:38 106 H 92 04/01/23 05:35 80 97 04/01/23 05:30 80 99 04/01/23 05:25 97 H 93/52 L 98 04/01/23 05:20 75 97 04/01/23 05:15 83 98 04/01/23 05:10 77 97 04/01/23 05:09 75 89/51 L 04/01/23 05:05 83 97 04/01/23 05:00 77 98 04/01/23 04:55 84 97 04/01/23 04:54 77 94/52 L 04/01/23 04:50 90 98 04/01/23 04:45 95 H 99 04/01/23 04:44 69 94 04/01/23 04:40 97 04/01/23 04:40 68 04/01/23 04:40 67 104/51 L 04/01/23 04:38 74 94 04/01/23 04:35 71 96 04/01/23 04:30 69 96 04/01/23 04:28 69 94 04/01/23 04:25 97 04/01/23 04:25 69 04/01/23 04:25 65 105/57 L 04/01/23 04:20 70 98 04/01/23 04:19 66 94 04/01/23 04:15 79 98 04/01/23 04:11 68 114/52 L 04/01/23 04:10 68 98 04/01/23 04:05 77 97 04/01/23 04:03 16 04/01/23 04:03 16 04/01/23 04:02 112 H 94 04/01/23 04:00 80 96 04/01/23 03:56 84 94 04/01/23 03:57 88 85/51 L 04/01/23 03:55 83 95 04/01/23 03:50 95 04/01/23 03:50 84 04/01/23 03:50 81 94 04/01/23 03:45 84 95 04/01/23 03:44 80 94 04/01/23 03:40 87 96 04/01/23 03:39 80 83/50 L 04/01/23 03:38 82 94 04/01/23 03:35 88 95 04/01/23 03:33 76 94 04/01/23 03:30 88 95 04/01/23 03:25 96 04/01/23 03:25 94 H 04/01/23 03:24 88 94 04/01/23 03:25 94 H 87/51 L 04/01/23 03:20 92 H 95 04/01/23 03:19 92 H 94 04/01/23 03:15 80 95 04/01/23 03:11 86 89/51 L 04/01/23 03:10 83 93 04/01/23 03:05 94 H 96 04/01/23 03:00 95 H 98 04/01/23 02:56 81 92/52 L 04/01/23 02:55 95 04/01/23 02:55 95 H 04/01/23 02:55 86 94 04/01/23 02:50 100 H 97 04/01/23 02:45 92 H 98 04/01/23 02:43 86 94 04/01/23 02:40 108 H 98 04/01/23 02:39 100 H 100/45 L 04/01/23 02:35 100 H 98 04/01/23 02:32 101 H 103/51 L 04/01/23 02:20 18 04/01/23 02:20 18 04/01/23 02:30 36.8 C 100 H 16 96 04/01/23 02:25 103 H 16 96 04/01/23 02:26 103 H 105/51 L 04/01/23 02:24 97 H 119/56 L 04/01/23 02:22 100 H 125/59 L 04/01/23 02:20 97 04/01/23 02:20 104 H 04/01/23 02:20 107 H 88/52 L 04/01/23 02:18 102 H 100/54 L 04/01/23 02:16 94 H 18 107/55 L 04/01/23 02:15 108 H 98 04/01/23 02:10 95 H 93 04/01/23 02:11 96 H 88 L 04/01/23 02:05 111 H 99 04/01/23 01:55 76 97 04/01/23 01:50 121 H 100 04/01/23 01:45 100 04/01/23 01:45 121 H 04/01/23 01:45 105 H 91 04/01/23 01:40 90 98 04/01/23 01:35 85 97 04/01/23 01:33 96 H 94 04/01/23 01:30 84 98 04/01/23 01:25 92 H 97 04/01/23 01:20 97 H 99 04/01/23 01:15 93 H 98 04/01/23 01:02 70 97 04/01/23 00:57 73 97 04/01/23 00:52 82 99 04/01/23 00:47 80 98 04/01/23 00:42 75 98 04/01/23 00:37 105 H 100 04/01/23 00:32 74 99 04/01/23 00:33 72 101/57 L 03/31/23 23:19 78 114/58 L
[2023-04-01] MEDS ORDERED: ACETAMINOPHEN 325 MG TAB PO PRN (12:35)
[2023-04-01] MEDS ORDERED: BENZOCAINE 20% AER SPR 82.5 GM CAN EXT PRN (12:35)
[2023-04-01] MEDS ORDERED: HYDROCORTISONE ACETATE 25 MG SUPP PR PRN (12:35)
[2023-04-01] MEDS ORDERED: DIPHTHERIA/TETANUS/PERTUSSIS Vaccine (Tdap, Age 7+yrs) 0.5mL SYR/VL IM ONE (12:35)
[2023-04-01] MEDS ORDERED: bisacodyL 10 MG SUPP PR PRN (12:35)
[2023-04-01] MEDS ORDERED: OXYTOCIN 30 UNITS/500 ML BAG IV PRN (12:35)
--- NOTE | 2023-04-01 12:35 | Delivery Summary ---
Vaginal Delivery Summary Date of Service April 01, 2023 Vaginal Delivery Summary Delivery Note live female SEBAS over intact perineum with Apgars 8/9 weight pending. Cord blood obtained followed by spontaneous delivery of intact placenta. No tears. EBL 100 ml. Final sponge and instrument count are correct. Mom and baby stable.
--- NOTE | 2023-04-01 13:38 | Anesthesia Procedure Note ---
Date of Service April 01, 2023 Anesthesia Post Epidural Note Vital Signs Vital Signs: Temp Pulse Resp BP Pulse Ox 98.2 F 85 16 102/56 L 91 04/01/23 11:10 04/01/23 13:24 04/01/23 07:11 04/01/23 13:24 04/01/23 12:15 Pain Intensity Abdomen: Pain Intensity: 0 Notes Mental Status: alert / awake / arousable and participated in evaluation Nausea / Vomiting: adequately controlled Pain: adequately controlled Airway Patency, RR, SpO2: stable & adequate BP & HR: stable & adequate Hydration State: stable & adequate Neuraxial Anesthesia: was administered and sensory block is resolving Anesthetic Complications: no major complications apparent and Pt Satisfied with anesthetic care Epidural: Removed without complications and With tip intact
[2023-04-01] MEDS: IBUPROFEN 600 MG TAB PO PRN ×2 (16:03→20:40)
[2023-04-01] MEDS: DOCUSATE SODIUM 100 MG CAP PO SCH (20:40)
[2023-04-02] MEDS: IBUPROFEN 600 MG TAB PO PRN ×2 (02:18→07:34)
[2023-04-02 06:15] LABS: Hematocrit (blood only) 34.1 % (37.0-47.0); Hemoglobin 11.6 g/dl (12.0-16.0); Mean Corpuscular Hemoglobin 29.7 pg (25.0-34.0); Mean Corpuscular Volume 87.4 fL (80.0-100.0); Mean Platelet Volume 9.7 fL (9.4-12.4); Platelet Count 309 K/uL (130-400); RDW Coefficient of Variation 14.3 % (11.5-14.5); RDW Standard Deviation 46.1 fL (36.4-46.3); White Blood Count 17.01 K/ul (4.8-10.8)
[2023-04-02] MEDS: DOCUSATE SODIUM 100 MG CAP PO SCH (07:34)
[2023-04-02] MEDS ORDERED: PRENATAL VITAMIN 1 TAB PO SCH (08:00)
[2023-04-02] MEDS ORDERED: NON-FORMULARY MEDICATION (Pnv133-Ferrous Fumarate-Fa [Prenatal] 28-800 mg-mcg Tablet) PO SCH (09:00)
--- NOTE | 2023-04-02 10:20 | Obstetrical Progress Note ---
Date of Service April 02, 2023 Subjective Ambulation: ambulating normally Voiding: no voiding problems Passing Gas:: Yes Diet Tolerance:: regular diet Feeding Type:: breast feeding Current Pain Level(1-10): 0 doing well. wants to go home Physical Exam Constitutional WD/WN, vitals as above Musculoskeletal Extremities: extremities normal to inspection Skin no rashes, warm and dry Neurologic patellar DTR's 2+ bilat, sensation intact Psychiatric A+Ox3, euthymic affect Results & Data Vital Signs (Past 12 Hours) Vital Signs Temp Pulse Resp BP Pulse Ox O2 Del Method 04/02/23 07:30 36.8 C 71 16 107/74 Room Air 04/02/23 03:00 36.6 C 78 16 102/68 97 Room Air 04/01/23 23:57 36.5 C 74 16 102/63 96 Room Air Laboratory Results Laboratory Results - last 72 hr 03/31/23 04/01/23 04/02/23 23:40 00:13 06:02 WBC 18.21 H 17.01 H RBC 4.02 L 3.90 L Hgb 12.0 11.6 L Hct 35.1 L 34.1 L MCV 87.3 87.4 MCH 29.9 29.7 MCHC 34.2 34.0 RDW Std Deviation 45.1 46.1 RDW Coeff of Nan 13.9 14.3 Plt Count 299 309 MPV 9.9 9.7 SARS-CoV-2, RNA, NAAT NEGATIVE
[2023-04-02] MEDS ORDERED: bisacodyL 5 MG TABEC PO SCH (20:00)
== END 2023-04-02 14:01 | disposition home or self-care (01) | DRG 807 ==
LOC: OPB 23:12 → 4S1 23:14 → 4E2 04-01 14:55